=== PATIENT | male | born 1970 | race Caucasian/White ===

== ENCOUNTER 2022-03-01 09:49 | Emergency (ER) | payer OTHER, SELFPAY ==
[2022-03-01 10:00] VITALS: BP 131/70; PULSE 84; RESP 16; TEMP 36.6; O2SAT 100
[2022-03-01 10:04] VITALS: BP 131/70; PULSE 84; RESP 16; TEMP 36.6; O2SAT 100
--- NOTE | 2022-03-01 10:23 | ED.URI ---
HPI - URI/Sore Throat General Chief Complaint: Upper Respiratory Infection Stated Complaint: Covid positive Time Seen by Provider: 03/01/22 10:23 Source: patient, RN notes reviewed and old records reviewed Mode of arrival: ambulatory Limitations: no limitations History of Present Illness HPI Narrative: 51-year-old male who presents to [facility] care with complaints of testing positive on to home COVID test this morning. Patient reports his employer will not accept his home test and has got to have a verified test from facility. Patient reports that yesterday he had some sinus drainage and sore throat with some cough noted today along with ear pain. Patient reports that he has had COVID vaccinations, Booster and also flu shot. 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 MD elicited complaint: cough, sore throat and nasal congestion Onset (ago): day(s) (day 2 of symptoms.) Related Data Home Medications Medication Instructions Recorded Confirmed dapagliflozin 10 mg tablet 10 mg PO DAILY 03/01/22 03/01/22 (Farxiga) dulaglutide 1.5 mg/0.5 mL 1.5 mg subcut DIRECTED 03/01/22 03/01/22 subcutaneous pen injector (Trulicity) fenofibric acid (choline) 135 mg 135 mg PO DAILY 03/01/22 03/01/22 capsule,delayed release lisinopril 20 1 tablet PO DAILY 03/01/22 03/01/22 mg-hydrochlorothiazide 25 mg tablet tadalafil 20 mg tablet 20 mg PO DAILY 03/01/22 03/01/22 testosterone cypionate 200 mg/mL 200 mg IM DIRECTED 03/01/22 03/01/22 intramuscular oil Allergies Allergy/AdvReac Type Severity Reaction Status Date / Time NKDA Allergy Mild Other Uncoded 03/01/22 10:01 Review of Systems Review of Systems: CONSTITUTIONAL: Denies malaise, chills, sweats, or fever. EYES: Denies visual changes, redness, or discharge. ENT: Reports rhinorrhea, congestion, sinus pain, otalgia and sore throat. CARDIOVASCULAR: Denies chest pain, palpitations, or edema. RESPIRATORY: Reports cough.? Denies dyspnea. GASTROINTESTINAL: Denies abdominal pain, nausea, vomiting, diarrhea SKIN: Denies rash or itching. MUSCULOSKELETAL: reports myalgia. NEUROLOGIC: Denies headache. All systems reviewed & are unremarkable except as noted in HPI and below PMFSH Past Medical History Medical History (Updated 03/03/22 @ 15:03 by Koki Mariscal NP) COVID-19 20 and 2021 Diabetes Elevated cholesterol Hypertension Surgical History Surgical History (Updated 03/03/22 @ 15:05 by Koki Mariscal NP) H/O shoulder surgery right History of bilateral carpal tunnel release Family History Family History (Updated 05/30/13 @ 15:46 by DOCTOR UNKNOWN) Other Diabetes mellitus Family history of blood dyscrasia Family history of lung disease Family history of malignant neoplasm of male breast Family history of migraine headaches Family history of obesity Hypertension Social History Social History (Updated 03/03/22 @ 15:05 by Koki Mariscal NP) Smoking status: Never smoker Alcohol intake: never Substance use type: does not use Gender identity (if verbalized by the patient): Male Comments At time of signature, agree with nursing past medical, surgical, social and family history. There is no relevant family history pertinent to the presenting complaint Exam Narrative: GENERAL: Well-appearing, well-nourished, and in no acute distress. HEAD: Normocephalic EYES: PERRLA, conjunctivae clear ENT: Nares clear, turbinates edematous and erythematous, clear discharge. Mucous membranes moist. TM pearly mccarty with dull light reflex bilaterally; no tragal tenderness. Oropharynx erythematous without lesions. Tonsils not enlarged and without exudate, no drooling, no hoarseness, no trismus, uvula midline. NECK: Supple. No lymphadenopathy CHEST: Clear to auscultation, breath sounds equal. No wheezing, rhonchi, rales, or stridor. No respiratory distress, speaks in full s
== END 2022-03-01 10:45 | disposition home or self-care (01) ==
PROVIDERS: Emergency Provider Registered Nurse; PCP Internal Medicine
DX: U07.1 COVID-19 (principal); E11.9 Type 2 diabetes mellitus without complications; E78.00 Pure hypercholesterolemia, unspecified; I10 Essential (primary) hypertension
CPT/HCPCS: 87426; 99213; C9803; G0463

== ENCOUNTER 2023-10-12 13:32 | Outpatient (CLI) | payer OTHER, SELFPAY ==
--- NOTE | ~2023-10-12 | XR_ITS ---
EXAMINATION: XR lg joint inject/asp w image DATE: 10/12/2023 14:11 INDICATION: Right hip pain. TECHNIQUE: A time-out was performed to verify the patient's name, date of , and procedure to b e performed. The procedure including the risks, benefits, and alternatives was discussed with the pat ient. Risks discussed included bleeding and infection. The patient understood the risks and agreed to proceed. The skin overlying the right hip joint was prepped and draped in usual sterile fashion. A nesthetic was administered with 1% lidocaine subcutaneously. A 22 G needle was advanced under fluoro scopic guidance into the joint. Subsequently, injectate consisting of 4 mL 1% lidocaine and 1 mL 40 m g/mL Depo-Medrol was instilled. The needle was removed and the entry site was cleaned and dressed. There were no immediate complications. Fluoroscopy exposure time was 0.1 minutes. The total number of images was 1. FINDINGS: Real-time fluoroscopy demonstrates the needle in the right hip joint. Patient's pain prior to procedure:08/29. Patient's pain following the procedure: 05/31. IMPRESSION: 1. Fluoroscopy guided right hip joint injection of local anesthetic and steroid with decrease in the patient's presenting pain. Reviewed, dictated and finalized at location A.
== END 2023-10-12 13:33 | disposition home or self-care (01) ==
PROVIDERS: PCP Internal Medicine; Visit Provider Orthopaedic Surgery
DX: M25.551 Pain in right hip (principal)
CPT/HCPCS: 20610; 77002